=== PATIENT | male | born 1970 | race Caucasian/White ===

== ENCOUNTER 2019-03-25 15:27 | Emergency (ER) | payer OTHER ==
[2019-03-25] MEDS ORDERED: Cyclobenzaprine 10 MG Tab PO ONE (16:45)
[2019-03-25] MEDS ORDERED: fentaNYL 100 MCG/2 ML SDV ONE ×2 (16:45→16:50)
[2019-03-25] MEDS ORDERED: Cyclobenzaprine 10 MG Tab ONE (16:50)
--- NOTE | 2019-03-25 17:37 | CRLCR ---
INDICATION: FALL, RIGHT RIB PAIN 2 IMAGES TECHNIQUE: Chest 2 views. COMPARISON: None. FINDINGS: Cardiovascular and mediastinum: Heart size and vasculature are normal in caliber and appearance. Mediastinum is within normal limits. Lungs and pleural spaces: Lungs are clear. No sign of infiltrate or mass. No sign of pleural effusion. No pneumothorax. Bones and soft tissues: No significant findings. IMPRESSION: Unremarkable chest. Dictated by: Simone De Santiago MD @ 03/25/2019 17:35:44 (Electronically Signed)
--- NOTE | 2019-03-25 17:45 | EDM.PDOC ---
ED HPI GENERAL MEDICAL PROBLEM - General Chief Complaint: Back Pain or Injury Stated Complaint: BACK PAIN/FALL Time Seen by Provider: 03/25/19 15:58 Source of Information: Reports: Patient, Family, RN Notes Reviewed History Limitations: Reports: No Limitations - History of Present Illness INITIAL COMMENTS - FREE TEXT/NARRATIVE: 48-year-old gentleman presents emergency department today following a fall at home, he injured himself when he slipped on the stairs fell down onto the right side of his chest flank area this happened approximately 8 hours prior he has tried Aleve and Tylenol at home with minimal relief. States it hurts to take a big breath Right Back Pain Score (Numeric/FACES): 7 - Related Data Allergies Allergy/AdvReac Type Severity Reaction Status Date / Time No Known Allergies Allergy Verified 03/25/19 16:26 Home Meds: Home Meds Metoprolol Succinate 1 tab PO DAILY 03/25/19 [History] busPIRone [Buspar] 1 tab PO BID 03/25/19 [History] traZODone 300 mg PO BEDTIME 03/25/19 [History] Past Medical History HEENT History: Reports: Impaired Vision Cardiovascular History: Reports: Hypertension Psychiatric History: Reports: Addiction, Anxiety Social & Family History - Tobacco Use Smoking Status *Q: Heavy Tobacco Smoker Years of Tobacco use: 25 Packs/Tins Daily: 1 - Alcohol Use Days Per Week of Alcohol Use: 4 Number of Drinks Per Day: 4 Total Drinks Per Week: 16 - Recreational Drug Use Recreational Drug Use: No ED ROS GENERAL - Review of Systems Review Of Systems: See Below Constitutional: Reports: No Symptoms Respiratory: Reports: Shortness of Breath (Pain with a deep breath) Cardiovascular: Reports: Chest Pain ED EXAM,LOWER BACK PAIN/INJURY - Physical Exam Exam: See Below Exam Limited By: No Limitations General Appearance: Alert, WD/WN, No Apparent Distress Respiratory/Chest: No Respiratory Distress, Lungs Clear, Normal Breath Sounds, No Accessory Muscle Use, Other (Tenderness along the right side mid scapular line) Cardiovascular: Regular Rate, Rhythm, No Murmur GI/Abdominal: Soft, Non-Tender Back Exam: Normal Inspection, Decreased Range of Motion, Paraspinal Tenderness. No: CVA Tenderness (R), CVA Tenderness (L), Vertebral Tenderness Course - Vital Signs Last Recorded V/S: Last Vital Signs Temp 98.4 F 03/25/19 16:23 Pulse 79 03/25/19 16:23 Resp 14 03/25/19 16:23 BP 87/42 L 03/25/19 16:23 Pulse Ox 95 03/25/19 16:23 - Orders/Labs/Meds Meds: Medications Discontinued Medications Generic Name Dose Route Start Last Admin Trade Name Enrique PRN Reason Stop Dose Admin Cyclobenzaprine HCl Confirm 03/25/19 16:50 Flexeril Administered 03/25/19 16:51 Dose 10 mg .ROUTE .STK-MED ONE Fentanyl Confirm 03/25/19 16:50 Sublimaze Administered 03/25/19 16:51 Dose 100 mcg .ROUTE .STK-MED ONE Departure - Departure Time of Disposition: 17:47 Disposition: Home, Self-Care 01 Condition: Fair Clinical Impression: Contusion of right chest wall Qualifiers: Encounter type: initial encounter Qualified Code(s): S20.211A - Contusion of right front wall of thorax, initial encounter - Discharge Information Instructions: Chest Contusion, Adult, [id number] Referrals: PCP,None [Primary Care Provider] - Forms: ED Department Discharge Additional Instructions: Continue to use ibuprofen as needed for pain control, use the hydrocodone as needed for breakthrough pain, use Flexeril as needed for muscle relaxant, please follow-up with your primary care upon return home - Assessment/Plan Plan: Assessment Acuity = acute Site and laterality = chest wall pain Etiology = secondary to a fall Manifestations = pain with breathing Location of injury = Home Lab values = chest x-ray shows no pneumothorax or rib fractures Plan He received fentanyl intranasally in combination of Flexeril, prescription written for hydrocodone 5/325 one tab by mouth 3 times a day when necessary total #10 as Flexeril 10 mg 1 tab by mouth 3 times a day when necessary total # 15. Have him follow-up with his primary care upon return home. This note was dictated using [employer] voice recognition software please call with any questions on syntax or grammar.
== END 2019-03-25 18:02 | disposition home or self-care (01) ==
LOC: JP.ED 15:27
DX: S20.211A Contusion of right front wall of thorax, initial encounter (principal); I10 Essential (primary) hypertension; F41.9 Anxiety disorder, unspecified; F17.210 Nicotine dependence, cigarettes, uncomplicated; Z79.899 Other long term (current) drug therapy; W10.8XXA Fall (on) (from) other stairs and steps, initial encounter
CPT/HCPCS: 71046; 99283; A9270; J3010